=== PATIENT | male | born 1960 | race American Indian/Alaskan Native ===

== ENCOUNTER 2018-09-25 11:22 | Emergency (ER) | payer OTHER ==
--- NOTE | 2018-09-25 11:44 | Emergency Department Report ---
Blank Doc - Documentation Documentation: This is a 58-year-old male that presents with cough, body aches, and chills x1 week. Denies any other complaints. This initial assessment diagnostic orders/clinical plan/treatment(s) is/are subject to change based on patient's health status, clinical progression and re-assessment by fellow clinical providers in the ED. Further treatment and workup at subsequent clinical providers discretion. Patient/guardians urged not to elope from ED s their condition may be serious if not clinically assessed and managed. Initial orders include: 1-Patient sent to [facility] for further evaluation and treatment 2- CXR
[2018-09-25 11:46] VITALS: BP 135/89
--- NOTE | 2018-09-25 12:19 | Emergency Department Report ---
- General Chief Complaint: Upper Respiratory Infection Stated Complaint: FLU LIKE SYMPTOMS Time Seen by Provider: 09/25/18 11:43 Source: patient Mode of arrival: Ambulatory Limitations: No Limitations - History of Present Illness Initial Comments: Patient is 58 years old male with no significant past medical history. Patient is a heavy smoker. Patient presented to the ER complaining of cough, productive with greenish sputum. Patient stated that he's been having fever and chills also. Patient denied any shortness of breath or chest pain. No nausea or vomiting. MD Complaint: cough, rhinorrhea, nasal congestion -: week(s) - Related Data Allergies Allergy/AdvReac Type Severity Reaction Status Date / Time No Known Allergies Allergy Unverified 09/25/18 11:46 ED Review of Systems ROS: Stated complaint: FLU LIKE SYMPTOMS Other details as noted in HPI Comment: All other systems reviewed and negative Constitutional: denies: chills, fever Respiratory: cough. denies: orthopnea, shortness of breath, SOB with exertion, SOB at rest, stridor, wheezing Cardiovascular: denies: chest pain, palpitations, dyspnea on exertion Gastrointestinal: denies: abdominal pain, nausea, vomiting, diarrhea, constipation, hematemesis Musculoskeletal: denies: back pain Neurological: denies: headache, weakness, numbness, paresthesias, confusion, abnormal gait ED Past Medical Hx - Past Medical History Previous Medical History?: No - Surgical History Past Surgical History?: No - Social History Smoking Status: Current Every Day Smoker Substance Use Type: Alcohol ED Physical Exam - General Limitations: No Limitations General appearance: alert, in no apparent distress - Head Head exam: Present: atraumatic, normocephalic, normal inspection - Eye Eye exam: Present: normal appearance, PERRL - ENT ENT exam: Present: normal exam, normal orophraynx, mucous membranes moist - Neck Neck exam: Present: normal inspection, full ROM. Absent: tenderness, meningismus, lymphadenopathy, thyromegaly - Respiratory Respiratory exam: Present: normal lung sounds bilaterally. Absent: respiratory distress, wheezes, rales, rhonchi, chest wall tenderness, accessory muscle use, decreased breath sounds, prolonged expiratory - Cardiovascular Cardiovascular Exam: Present: regular rate, normal rhythm, normal heart sounds - GI/Abdominal GI/Abdominal exam: Present: soft, normal bowel sounds. Absent: distended, tenderness, guarding, rebound, rigid, organomegaly, mass, bruit, pulsatile mass - Extremities Exam Extremities exam: Present: normal inspection, full ROM, normal capillary refill. Absent: pedal edema, calf tenderness - Back Exam Back exam: Present: normal inspection, full ROM. Absent: tenderness, CVA tenderness (R), CVA tenderness (L), muscle spasm, paraspinal tenderness, vertebral tenderness - Neurological Exam Neurological exam: Present: alert, oriented X3, CN II-XII intact, normal gait, reflexes normal - Skin Skin exam: Present: warm, intact, normal color ED Course Vital Signs 09/25/18 11:44 Temperature 98.4 F Pulse Rate 89 Respiratory 18 Rate Blood Pressure 135/89 Blood Pressure 135/89 [Right] O2 Sat by Pulse 95 Oximetry ED Medical Decision Making - Radiology Data Radiology results: image reviewed Chest x-ray is unremarkable. Critical care attestation.: If time is entered above; I have spent that time in minutes in the direct care of this critically ill patient, excluding procedure time. ED Disposition Clinical Impression: Acute bronchitis Disposition: - TO HOME OR SELFCARE Is pt being admited?: No Condition: Stable Instructions: Acute Bronchitis (ED) Referrals: [facility] [Provider Group] - 3-5 Days
--- NOTE | 2018-09-25 12:20 | XRay Report ---
FINAL REPORT EXAM: XR CHEST ROUTINE 2V HISTORY: cough TECHNIQUE: Chest, two views PRIORS: None. FINDINGS: The heart size is normal. Pulmonary vasculature is not congested. There is right pleural thickening. There is some parenchymal scarring bilaterally. Hyperinflation suggests COPD. There is no evidence of pneumothorax. IMPRESSION: COPD. Pleural and parenchymal scarring. There is no acute abnormality identified.
== END 2018-09-25 12:43 | disposition home or self-care (01) ==
LOC: ED 11:22
DX: J20.9 Acute bronchitis, unspecified (principal); F17.200 Nicotine dependence, unspecified, uncomplicated
CPT/HCPCS: 71046

== ENCOUNTER 2018-12-25 05:56 | Emergency (ER) | payer OTHER ==
[2018-12-25 06:06] VITALS: BP 132/90
[2018-12-25 06:31] LABS: Basophils # (Auto) 0.1 K/mm3 (0.0-0.1); Basophils % (Auto) 2.8 % (0.0-1.8); Eosinophils # (Auto) 0.1 K/mm3 (0.0-0.4); Eosinophils % (Auto) 3.4 % (0.0-4.3); Hematocrit 42.7 % (35.5-45.6); Hemoglobin 14.8 gm/dl (11.8-15.2); Lymphocytes # (Auto) 1.5 K/mm3 (1.2-5.4); Lymphocytes % (Auto) 38.3 % (13.4-35.0); Mean Corpuscular HGB Conc 35 % (32-34); Mean Corpuscular Volume 99 fl (84-94); Monocytes # (Auto) 0.4 K/mm3 (0.0-0.8); Monocytes % (Auto) 9.6 % (0.0-7.3); Platelet Count 182 K/mm3 (140-440); Red Blood Count 4.31 M/mm3 (3.65-5.03); Red Cell Distribution Width 16.7 % (13.2-15.2)
[2018-12-25 06:53] LABS: BUN/Creatinine Ratio 10; Blood Urea Nitrogen 9 mg/dL (9-20); Calcium 8.9 mg/dL (8.4-10.2); Hemolysis Index 10
--- NOTE | 2018-12-25 07:05 | XRay Report ---
PROCEDURE: XR CHEST ROUTINE 2V TECHNIQUE: PA and lateral chest radiographs were obtained. HISTORY: Chest Pain COMPARISONS: None. FINDINGS: Heart: Normal. Mediastinum/Vessels: Normal. Lungs/Pleural space: Lungs are expanded. There is mild COPD. There are chronic fibrotic changes at t he lung bases. There is a possible right lower lobe infiltrates versus fibrosis. There are small pleu ral effusions. There are no pneumothoraces.. Bony thorax: No acute osseous abnormality. IMPRESSION: The heart size is normal.. Lungs are expanded. There is mild COPD. There are chronic fibrotic changes at the lung bases. There i s a possible right lower lobe infiltrates versus fibrosis. There are small pleural effusions. There a re no pneumothoraces.. This document is electronically signed by Devonte Toledo MD., Dec 25 2018 07:04:11 AM ET
[2018-12-25] MEDS ORDERED: PERCOCET 5/325 PO ONE (08:19)
[2018-12-25] MEDS ORDERED: DELTASONE PO ONE (08:19)
[2018-12-25] MEDS ORDERED: IBUPROFEN PO ONE (08:19)
[2018-12-25] MEDS ORDERED: PROVENTIL IH ONE (08:21)
--- NOTE | 2018-12-25 09:06 | Emergency Department Report ---
ED General Adult HPI - General Chief complaint: Extremity Injury, Upper Stated complaint: INTENSE LEFT SHOULDER/NECK PAIN AND BAD COUGH Time Seen by Provider: 12/25/18 08:13 Source: patient Mode of arrival: Ambulatory Limitations: No Limitations - History of Present Illness Initial comments: Patient is a 58-year-old male past medical history of osteoarthritis and tobacco abuse who presents with left shoulder pain meds been going on for about 2 weeks. Patient states that he gets this pain every year. He used to do construction. The pain is a 10 out of 10 as an achy type of pain nothing makes it better and nothing makes it worse. The pain radiates from his shoulder to his neck. Patient also states that he's been coughing. He smokes a pack a day. He has no numbness no tingling. Patient denies having any fevers or chills he denies any chest pain no abdominal pain. Severity scale (0 -10): 8 - Related Data Previous Rx's Medication Instructions Recorded Last Taken Type Amoxicillin [Amoxicillin TAB] 875 mg PO BID #14 tablet 09/25/18 Unknown Rx guaiFENesin/CODEINE [Robitussin AC] 10 ml PO TID PRN #100 ml 09/25/18 Unknown Rx ALBUTEROL Inhaler (OR & NICU) 4 puff IH QID PRN #1 inhalation 12/25/18 Unknown Rx [ProAir HFA Inhaler] predniSONE [Deltasone] 20 mg PO BID #10 tab 12/25/18 Unknown Rx traMADol [Ultram 50 MG tab] 50 mg PO Q6HR PRN #11 tablet 12/25/18 Unknown Rx Allergies Allergy/AdvReac Type Severity Reaction Status Date / Time No Known Allergies Allergy Unverified 09/25/18 11:46 ED Review of Systems ROS: Stated complaint: INTENSE LEFT SHOULDER/NECK PAIN AND BAD COUGH Other details as noted in HPI Constitutional: denies: chills, fever Eyes: denies: eye pain, eye discharge, vision change ENT: denies: ear pain, throat pain Respiratory: denies: cough, shortness of breath, wheezing Cardiovascular: denies: chest pain, palpitations Endocrine: no symptoms reported Gastrointestinal: denies: abdominal pain, nausea, diarrhea Genitourinary: denies: urgency, dysuria Musculoskeletal: arthralgia. denies: back pain, joint swelling Skin: denies: rash, lesions Neurological: denies: headache, weakness, paresthesias Psychiatric: denies: anxiety, depression Hematological/Lymphatic: denies: easy bleeding, easy bruising ED Past Medical Hx - Past Medical History Previous Medical History?: Yes Additional medical history: Chronic Bronchitis - Surgical History Past Surgical History?: No - Social History Smoking Status: Current Every Day Smoker - Medications Home Medications: Home Medications Medication Instructions Recorded Confirmed Last Taken Type Amoxicillin [Amoxicillin TAB] 875 mg PO BID #14 tablet 09/25/18 Unknown Rx guaiFENesin/CODEINE [Robitussin AC] 10 ml PO TID PRN #100 ml 09/25/18 Unknown Rx ALBUTEROL Inhaler (OR & NICU) 4 puff IH QID PRN #1 inhalation 12/25/18 Unknown Rx [ProAir HFA Inhaler] predniSONE [Deltasone] 20 mg PO BID #10 tab 12/25/18 Unknown Rx traMADol [Ultram 50 MG tab] 50 mg PO Q6HR PRN #11 tablet 12/25/18 Unknown Rx ED Physical Exam - General Limitations: No Limitations General appearance: alert, in no apparent distress - Head Head exam: Present: atraumatic, normocephalic - Eye Eye exam: Present: normal appearance - ENT ENT exam: Present: mucous membranes moist - Neck Neck exam: Present: normal inspection - Respiratory Respiratory exam: Present: normal lung sounds bilaterally. Absent: respiratory distress - Cardiovascular Cardiovascular Exam: Present: regular rate, normal rhythm. Absent: systolic murmur, diastolic murmur, rubs, gallop - GI/Abdominal GI/Abdominal exam: Present: soft, normal bowel sounds - Rectal Rectal exam: Present: deferred - Extremities Exam Extremities exam: Present: normal inspection, other - Expanded Upper Extremity Exam Right Shoulder Exam: Present: tenderness Upper Arm exam: Present: normal inspection Elbow exam: Present: normal inspection, full ROM Forearm Wrist exam: Present: normal inspection Hand Wrist exam: Present: normal inspection Neuro motor exam: Present: wrist extension intact Neurosensory exam: Present: 2-point discrimination, radial nerve intact, ulnar nerve intact, median nerve intact Vascular: Present: normal capillary refill - Back Exam Back exam: Present: normal inspection - Neurological Exam Neurological exam: Present: alert, oriented X3 - Psychiatric Psychiatric exam: Present: normal affect, normal mood - Skin Skin exam: Present: warm, dry, intact, normal color. Absent: rash ED Course Vital Signs 12/25/18 12/25/18 12/25/18 06:01 06:03 08:37 Temperature 97.8 F 97.8 F Pulse Rate 94 H 87 Respiratory 19 20 18 Rate Blood Pressure 132/90 132/90 O2 Sat by Pulse 97 97 Oximetry ED Medical Decision Making - Lab Data Result diagrams: 12/25/18 06:22 12/25/18 06:22 Lab Results 12/25/18 12/25/18 Range/Units 06:22 06:22 WBC 4.0 L (4.5-11.0) K/mm3 RBC 4.31 (3.65-5.03) M/mm3 Hgb 14.8 (11.8-15.2) gm/dl Hct 42.7 (35.5-45.6) % MCV 99 H (84-94) fl MCH 35 H (28-32) pg MCHC 35 H (32-34) % RDW 16.7 H (13.2-15.2) % Plt Count 182 (140-440) K/mm3 Lymph % (Auto) 38.3 H (13.4-35.0) % [place] % (Auto) 9.6 H (0.0-7.3) % Eos % (Auto) 3.4 (0.0-4.3) % Baso % (Auto) 2.8 H (0.0-1.8) % Lymph # 1.5 (1.2-5.4) K/mm3 [place] # 0.4 (0.0-0.8) K/mm3 Eos # 0.1 (0.0-0.4) K/mm3 Baso # 0.1 (0.0-0.1) K/mm3 Seg Neutrophils % 45.9 (40.0-70.0) % Seg Neutrophils # 1.8 (1.8-7.7) K/mm3 Sodium 142 (137-145) mmol/L Potassium 4.5 (3.6-5.0) mmol/L Chloride 103.5 (98-107) mmol/L Carbon Dioxide 24 (22-30) mmol/L Anion Gap 19 mmol/L BUN 9 (9-20) mg/dL Creatinine 0.9 (0.8-1.5) mg/dL Estimated GFR > 60 ml/min BUN/Creatinine Ratio 10 % Glucose 91 (75-100) mg/dL Calcium 8.9 (8.4-10.2) mg/dL Troponin T < 0.010 (0.00-0.029) ng/mL - EKG Data -: EKG Interpreted by Me - EKG Data 12/25/18 09:07 EKG shows normal sinus rhythm no ST segment elevation no noted T-wave inversion normal axis. Impression normal EKG. - Radiology Data Radiology results: report reviewed Chest x-ray: Shows no acute cardiopulmonary disease - Medical Decision Making Chief medical diagnosis: Osteoporosis arthritis of the shoulder Differential medical diagnosis: COPD exacerbation, non-STEMI I will get EKG, CBC, BMP, troponin, oral pain medicine, chest x-ray and breathing treatment. Discussed plan with patient. Patient agrees with plan additional verbal discharge instructions were given. Critical care attestation.: If time is entered above; I have spent that time in minutes in the direct care of this critically ill patient, excluding procedure time. ED Disposition Clinical Impression: Neck pain on left side Chronic bronchitis Qualifiers: Chronic bronchitis type: simple Qualified Code(s): J41.0 - Simple chronic bronchitis Left shoulder pain Qualifiers: Chronicity: chronic Qualified Code(s): M25.512 - Pain in left shoulder; G89.29 - Other chronic pain Disposition: DC-01 TO HOME OR SELFCARE Is pt being admited?: No Does the pt Need Aspirin: No Condition: Stable Instructions: Chronic Bronchitis (ED), Osteoarthritis (ED) Prescriptions: predniSONE [Deltasone] 20 mg PO BID #10 tab ALBUTEROL Inhaler (OR & NICU) [ProAir HFA Inhaler] 4 puff IH QID PRN #1 inhalation PRN Reason: Shortness Of Breath traMADol [Ultram 50 MG tab] 50 mg PO Q6HR PRN #11 tablet PRN Reason: Pain Referrals: MATIAS RIVAS MD [Staff Physician] - 3-5 Days
== END 2018-12-25 09:40 | disposition home or self-care (01) ==
LOC: ED 05:56
DX: J41.0 Simple chronic bronchitis (principal); G89.29 Other chronic pain; M25.512 Pain in left shoulder; M54.2 Cervicalgia; F17.200 Nicotine dependence, unspecified, uncomplicated
CPT/HCPCS: 36415; 71046; 80048; 84484; 85025; 93005; 93010; 94640; 99284; J7512